=== PATIENT | female | born 1995 | race Caucasian/White ===

== ENCOUNTER 2019-05-31 12:21 | Emergency (ER) | payer OTHER ==
[~2019-05-31] VITALS: Ht 175.3 cm; Wt 67.1 kg
--- NOTE | 2019-05-31 13:32 | RAD ---
EXAM: Left elbow, 3 views; left shoulder, 3 views; left hand, 3 views. HISTORY: Fall. COMPARISON: None. FINDINGS: Left elbow: 3 views of the left elbow are obtained. There is a mildly displaced radial head and neck fracture with associated elbow effusion. Left hand: 3 views of the left hand are obtained. There is no fracture, dislocation or subluxation. Left shoulder: 3 views of the left shoulder obtained. There is no fracture, dislocation or subluxation. IMPRESSION: Mildly displaced left radial head and neck fracture with associated elbow effusion. Electronically signed by: Sonja Good MD (05/31/2019 1:29 PM) [facility]
[2019-05-31 13:55] VITALS: BP 128/80
--- NOTE | 2019-05-31 14:05 | PHYS DOC ---
Past History Past Medical History: No Pertinent History Past Surgical History: Other Additional Past Surgical Histo: Left overay Smoking: Non-smoker Alcohol Use: None Drug Use: None Adult General Chief Complaint Chief Complaint: MECHANICAL FALL HPI HPI Patient is a 24-year-old female presents with left, nondominant elbow and forearm discomfort. Patient slipped on water falling backwards landing on her elbow. No numbness or tingling. Decreased active range of motion at the elbow. Some relief with ibuprofen. Pain is moderate.[] Review of Systems Review of Systems Constitutional: Denies fever or chills [] Eyes: Denies change in visual acuity, redness, or eye pain [] HENT: Denies nasal congestion or sore throat [] Respiratory: Denies cough or shortness of breath [] Cardiovascular: No chest pain or palpitations[] GI: Denies abdominal pain, nausea, vomiting, bloody stools or diarrhea [] : Denies dysuria or hematuria [] Musculoskeletal: Denies back pain, see history of present illness[] Integument: Denies rash or skin lesions [] Neurologic: Denies headache, focal weakness or sensory changes [] Endocrine: Denies polyuria or polydipsia [] All other systems were reviewed and found to be within normal limits, except as documented in this note. Allergies Allergies Allergies Coded Allergies Type Severity Reaction Last Updated Verified No Known Drug Allergies 05/31/19 No Physical Exam Physical Exam Constitutional: Well developed, well nourished, no acute distress, non-toxic appearance. [] HENT: Normocephalic, atraumatic, bilateral external ears normal, oropharynx moist, no oral exudates, nose normal. [] Eyes: PERRLA, EOMI, conjunctiva normal, no discharge. [] Neck: Normal range of motion, no tenderness, supple, no stridor. [] Cardiovascular:Heart rate regular rhythm, no murmur [] Lungs & Thorax: Bilateral breath sounds clear to auscultation [] Abdomen: Not examined. [] Skin: Warm, dry, no erythema, no rash. [] Back: No tenderness, no CVA tenderness. [] Extremities: Left elbow has tenderness to palpation diffusely. Active range of motion from approximately 45 to 135, unable to fully extend. No wrist tenderne ss. No shoulder tenderness. A joint above and a joined below were evaluated and were normal. She is distally neurovascularly intact. The other 3 extremities show: No tenderness, no cyanosis, no clubbing, ROM intact, no edema. [] Neurologic: Alert and oriented X 3, normal motor function, normal sensory function, no focal deficits noted. [] Psychologic: Affect normal, judgement normal, mood normal. [] Current Patient Data Vital Signs Vital Signs Date Time Temp Pulse Resp B/P (MAP) Pulse Ox O2 Delivery O2 Flow Rate FiO2 05/31/19 13:55 98.0 80 16 100 Room Air 05/31/19 12:56 124/78 (93) EKG EKG [] Radiology/Procedures Radiology/Procedures PROCEDURE: ELBOW LEFT 3V EXAM: Left elbow, 3 views; left shoulder, 3 views; left hand, 3 views. HISTORY: Fall. COMPARISON: None. FINDINGS: Left elbow: 3 views of the left elbow are obtained. There is a mildly displaced radial head and neck fracture with associated elbow effusion. Left hand: 3 views of the left hand are obtained. There is no fracture, dislocation or subluxation. Left shoulder: 3 views of the left shoulder obtained. There is no fracture, dislocation or subluxation. IMPRESSION: Mildly displaced left radial head and neck fracture with associated elbow effusion.[] Course & Med Decision Making Course & Med Decision Making Pertinent Labs and Imaging studies reviewed. (See chart for details) ED course: Patient arrived, was placed in bed, and tolerated exam well. She was transported to and from radiology with any complications. After return of the imaging findings, these were discussed with the patient. Consultation was made with orthopedic surgery, Dr. Chavez, who recommended a sling. She is to follow- up with him in 2 weeks. She was distally neurovascularly intact after sling application. She was discharged in improved condition with all questions answered. Medical decision making: Patient with a closed fracture of her left radial head with the effusion triggering decreased or range of motion. There is no evidence of neurologic or vascular compromise. No evidence of nonaccidental trauma. No evidence of an open fracture.[] Dragon Disclaimer Dragon Disclaimer This electronic medical record was generated, in whole or in part, using a voice recognition dictation system. Departure Departure: Impression: Primary Impression: Fracture of radial head, left, closed Disposition: 01 HOME, SELF-CARE Condition: IMPROVED Referrals: PCP,NO (PCP) Patient Instructions: Radial Head Fracture, Sling Use After Injury or Surgery Additional Instructions: Follow-up with your regular doctor in 2 days. If you do not have regular doctor list of local clinics will be provided for you. Follow-up with Dr. Chavez, orthopedic surgery, in 2 weeks. Contact the office to arrange appointment time. [address] [facility], [place] [address] Return to the ER if worsening pain, weakness, or any other concerns. Scripts Hydrocodone Bit/Acetaminophen (NORCO 5-325 TABLET) 1 Each Tablet 1 TAB PO Q4-6HRS for severe pain, #20 TAB Prov: ISAÍAS BOATENG DO 05/31/19 Meloxicam (MELOXICAM) 7.5 Mg Tablet 7.5 MG PO DAILY for PAIN, #20 TAB Prov: ISAÍAS BOATENG DO 05/31/19 Problem Qualifiers Primary Impression: Fracture of radial head, left, closed Encounter type: initial encounter Fracture alignment: displaced Qualified Codes: S52.122A - Displaced fracture of head of left radius, initial encounter for closed fracture ISAÍAS BOATENG DO May 31, 2019 14:05
[2019-05-31] MEDS ORDERED: MELO7.5T29 PO (14:38)
[2019-05-31] MEDS ORDERED: HYDR-3165 PO (14:38)
--- NOTE | 2019-05-31 14:52 | RAD ---
EXAM: Left elbow, 3 views; left shoulder, 3 views; left hand, 3 views. HISTORY: Fall. COMPARISON: None. FINDINGS: Left elbow: 3 views of the left elbow are obtained. There is a mildly displaced radial head and neck fracture with associated elbow effusion. Left hand: 3 views of the left hand are obtained. There is no fracture, dislocation or subluxation. Left shoulder: 3 views of the left shoulder obtained. There is no fracture, dislocation or subluxation. IMPRESSION: Mildly displaced left radial head and neck fracture with associated elbow effusion. MTDD
== END 2019-05-31 14:54 | disposition home or self-care (01) ==
LOC: ER 12:21
DX: S52.122A Displaced fracture of head of left radius, initial encounter for closed fracture (principal); W01.0XXA Fall on same level from slipping, tripping and stumbling without subsequent striking against object, initial encounter; Y93.89 Activity, other specified; Y92.89 Other specified places as the place of occurrence of the external cause; Y99.8 Other external cause status
CPT/HCPCS: 73030; 73080; 73130; 99284

== ENCOUNTER 2019-08-30 19:39 | Emergency (ER) | payer OTHER ==
[~2019-08-30] VITALS: Ht 177.8 cm; Wt 79.4 kg
[~2019-08-30 19:39] MED LIST: HYDR-3165 PO; MELO7.5T29 PO
[2019-08-30 19:50] VITALS: BP 127/69
[2019-08-30 20:30] LABS: INFLUENZA A PATIENT NEGATIVE (NEGATIVE); INFLUENZA B PATIENT NEGATIVE (NEGATIVE)
[2019-08-30] MEDS ORDERED: AZIT250T PO (20:41)
--- NOTE | 2019-08-30 20:42 | PHYS DOC ---
Past History Past Medical History: No Pertinent History Past Surgical History: Other Additional Past Surgical Histo: OVARIAN CYST, CLEFT PALATE Smoking: Non-smoker Alcohol Use: None Drug Use: None Adult General Chief Complaint Chief Complaint: COUGH [facility] HPI 24-year-old female presents with a chief complaint of cough with sputum production and sore throat. Patient states symptoms been ongoing for the last several days progressively becoming worse. Patient denies any associated fevers. Review of Systems Review of Systems Constitutional: Denies fever or chills [] Eyes: Denies change in visual acuity, redness, or eye pain [] HENT: Positive sore throat Respiratory: Positive cough Cardiovascular: No additional information not addressed in HPI [] GI: Denies abdominal pain, nausea, vomiting, bloody stools or diarrhea [] : Denies dysuria or hematuria [] Musculoskeletal: Denies back pain or joint pain [] Integument: Denies rash or skin lesions [] Neurologic: Denies headache, focal weakness or sensory changes [] Endocrine: Denies polyuria or polydipsia [] All other systems were reviewed and found to be within normal limits, except as documented in this note. Allergies Allergies Allergies Coded Allergies Type Severity Reaction Last Updated Verified No Known Drug Allergies 05/31/19 No Physical Exam Physical Exam Constitutional: Well developed, well nourished, no acute distress, non-toxic appearance. [] HENT: Normocephalic, atraumatic, bilateral external ears normal, oropharynx moist, no oral exudates, nose normal. [] Eyes: PERRLA, EOMI, conjunctiva normal, no discharge. [] Neck: Normal range of motion, no tenderness, supple, no stridor. [] Cardiovascular:Heart rate regular rhythm, no murmur [] Lungs & Thorax: Bilateral breath sounds clear to auscultation [] Abdomen: Bowel sounds normal, soft, no tenderness, no masses, no pulsatile masses. [] Skin: Warm, dry, no erythema, no rash. [] Back: No tenderness, no CVA tenderness. [] Extremities: No tenderness, no cyanosis, no clubbing, ROM intact, no edema. [] Neurologic: Alert and oriented X 3, normal motor function, normal sensory function, no focal deficits noted. [] Psychologic: Affect normal, judgement normal, mood normal. [] Current Patient Data Vital Signs Vital Signs Date Time Temp Pulse Resp B/P (MAP) Pulse Ox O2 Delivery O2 Flow Rate FiO2 08/30/19 19:50 98.2 72 20 127/69 (88) 98 Room Air Lab Results Laboratory Tests Test 08/30/19 19:55 Influenza Type A (Rapid) Negative (NEGATIVE) Influenza Type B (Rapid) Negative (NEGATIVE) EKG EKG [] Radiology/Procedures Radiology/Procedures [] Course & Med Decision Making Course & Med Decision Making Pertinent Labs and Imaging studies reviewed. (See chart for details) []Flu swab negative. Patient was discharged home with Zithromax. Patient advised to take [id number] cough medications. Dragon Disclaimer Dragon Disclaimer This electronic medical record was generated, in whole or in part, using a voice recognition dictation system. Departure Departure: Impression: Primary Impression: Bronchitis Disposition: 01 HOME, SELF-CARE Condition: STABLE Referrals: PCP,NO (PCP) Patient Instructions: Acute Bronchitis Scripts Azithromycin (ZITHROMAX) 250 Mg Tablet 250 MG PO DAILY for ANTI-BIOTIC for 5 Days, #6 TAB 0 Refills Prov: ROCKY IBANEZ DO 08/30/19 ROCKY IBANEZ DO Aug 30, 2019 20:42
== END 2019-08-30 20:53 | disposition home or self-care (01) ==
LOC: ER 19:39
DX: J40 Bronchitis, not specified as acute or chronic (principal)
CPT/HCPCS: 87804; 99283

== ENCOUNTER 2019-09-26 18:35 | Emergency (ER) | payer OTHER ==
[~2019-09-26] VITALS: Ht 177.8 cm; Wt 79.1 kg
[~2019-09-26 18:35] MED LIST changes: +AZIT250T PO
--- NOTE | 2019-09-26 19:55 | PHYS DOC ---
Past History Past Medical History: No Pertinent History Past Surgical History: Other Additional Past Surgical Histo: cleft p[alate repair, ovarian cyst removed Smoking: Non-smoker Alcohol Use: None Drug Use: None General Adult EDM: Chief Complaint: NAUSEA/VOMITING/DIARRHEA HPI: HPI: 24-year-old female presents with vomiting for a few days. She is having difficulty keeping anything but fluids and crackers down. She has also had intermittent epigastric pain with vomiting. The pain is a cramping sensation that comes and goes. She has not had a fever or chills. She has had some chest discomfort with her cough, but it only hurts when she coughs hard. No known coronavirus exposures. She does not feel short of breath. She denies abdominal surgery. Review of Systems: Review of Systems: Constitutional: Denies fever or chills Eyes: Denies change in visual acuity HENT: Denies nasal congestion or sore throat Respiratory: Cough without shortness of breath Cardiovascular: Denies chest pain or edema GI: Epigastric abdominal pain, nausea, vomiting : Denies dysuria Musculoskeletal: Denies back pain or joint pain Integument: Denies rash Neurologic: Denies headache, focal weakness or sensory changes Endocrine: Denies polyuria or polydipsia Lymphatic: Denies swollen glands Psychiatric: Denies depression or anxiety Heart Score: Risk Factors: Risk Factors: DM, Current or recent (<one month) smoker, HTN, HLP, family history of CAD, obesity. Risk Scores: Score 0 - 3: 2.5% MACE over next 6 weeks - Discharge Home Score 4 - 6: 20.3% MACE over next 6 weeks - Admit for Clinical Observation Score 7 - 10: 72.7% MACE over next 6 weeks - Early Invasive Strategies Current Medications: Current Meds: Current Medications Medications (Trade) Dose Ordered Sig/Dhara Start Time Stop Time Status Last Admin Dose Admin Ondansetron HCl (Zofran) 4 mg 1X ONCE 09/26/19 19:00 09/26/19 19:01 DC Sodium Chloride 1,000 ml @ 1,000 mls/hr 1X ONCE 09/26/19 19:00 09/26/19 19:59 Allergies: Allergies: Allergies Coded Allergies Type Severity Reaction Last Updated Verified No Known Drug Allergies 09/26/19 No Physical Exam: PE: Constitutional: Well developed, well nourished, no acute distress, non-toxic appearance. [] HENT: Normocephalic, atraumatic, bilateral external ears normal, oropharynx moist, no oral exudates, nose normal. [] Eyes: PERRLA, EOMI, conjunctiva normal, no discharge. [] Neck: Normal range of motion, no tenderness, supple, no stridor. [] Cardiovascular: Heart rate regular rhythm, no murmur [] Lungs & Thorax: Bilateral breath sounds clear to auscultation [] Abdomen: Bowel sounds normal, soft, no tenderness, no masses, no pulsatile masses. [] Skin: Warm, dry, no erythema, no rash. [] Back: No tenderness, no CVA tenderness. [] Extremities: No tenderness, no cyanosis, no clubbing, ROM intact, no edema. [] Neurologic: Alert and oriented X 3, normal motor function, normal sensory function, no focal deficits noted. [] Psychologic: Affect normal, judgement normal, mood normal. [] Current Patient Data: Vital Signs: Vital Signs Date Time Temp Pulse Resp B/P (MAP) Pulse Ox O2 Delivery O2 Flow Rate FiO2 09/26/19 18:48 99.4 72 18 129/78 (95) 97 Room Air EKG: EKG: [] Radiology/Procedures: Radiology/Procedures: [] Impressions: Exam: Chest one view INDICATION: Cough TECHNIQUE: Frontal view of the chest Comparisons: None FINDINGS: The cardiomediastinal silhouette and pulmonary vessels are within normal limits. The lung and pleural spaces are clear. IMPRESSION: No acute cardiopulmonary process. Electronically signed by: Jenny Moulton MD (09/26/2019 8:24 PM) [id number] DICTATED AND SIGNED BY: JENNY MOULTON MD DATE: 09/26/192023 CC: SONIA CORLEY DO; ISABELLE VILLARREAL MD ~ Course & Med Decision Making: Course & Med Decision Making Pertinent Labs and Imaging studies reviewed. (See chart for details) The patient's chest x-ray is unremarkable. The patient's labs are unremarkable. Her urinalysis is negative for infection. She was given a liter of saline and Zofran by IV. She's had no further vomiting. I will discharge her with prescription for Zofran. She is stable for discharge at this time. [] Dragon Disclaimer: Dragon Disclaimer: This electronic medical record was generated, in whole or in part, using a voice recognition dictation system. Departure Departure: Impression: Primary Impression: Nausea and vomiting Qualified Codes: R11.2 - Nausea with vomiting, unspecified Disposition: 01 HOME, SELF-CARE Condition: STABLE Referrals: ISABELLE VILLARREAL MD (PCP) Patient Instructions: Nausea and Vomiting, Dpel-cu-Gudc Scripts Ondansetron (ONDANSETRON ODT) 4 Mg Tab.rapdis 1 TAB PO PRN Q6-8HRS PRN for VOMITING, #16 TAB Prov: SONIA CORLEY DO 09/26/19 SONIA CORLEY DO Sep 26, 2019 19:55
[2019-09-26] MEDS: ONDANSETRON PF 4 MG/2 ML VIAL. IVP ONE (20:20)
[2019-09-26] MEDS: IV NORMAL SALINE 1,000ML 1,000 ML IV ONE (20:20)
[2019-09-26 20:24] VITALS: BP 124/80
--- NOTE | 2019-09-26 20:27 | RAD ---
Exam: Chest one view INDICATION: Cough TECHNIQUE: Frontal view of the chest Comparisons: None FINDINGS: The cardiomediastinal silhouette and pulmonary vessels are within normal limits. The lung and pleural spaces are clear. IMPRESSION: No acute cardiopulmonary process. Electronically signed by: Jenny Donaldson MD (09/26/2019 8:24 PM) [id number]
[2019-09-26 21:05] LABS: BASO # 0.1 x10^3/uL (0.0-0.2); BASO % 1 % (0-3); EOS # 0.2 x10^3/uL (0.0-0.7); EOS % 3 % (0-3); HEMATOCRIT 42.2 % (36.0-47.0); HEMOGLOBIN 12.6 g/dL (12.0-15.5); LYMPH # 1.7 x10^3/uL (1.0-4.8); LYMPH % 27 % (24-48); MEAN CORPUSCULAR HEMOGLOBIN 32 pg (25-35); MONO # 0.3 x10^3/uL (0.0-1.1); MONO % 5 % (0-9); NEUT % 64 % (31-73); PLATELET COUNT 163 x10^3/uL (140-400); RED CELL DISTRIBUTION WIDTH 14.7 % (11.5-14.5); WHITE BLOOD COUNT 6.2 x10^3/uL (4.0-11.0)
[2019-09-26 21:17] LABS: MEAN CORPUSCULAR HGB CONC 30 g/dL (31-37); MEAN CORPUSCULAR VOLUME 106 fL (79-100)
[2019-09-26 21:20] LABS: CALCIUM 8.7 mg/dL (8.5-10.1); CREATININE 0.9 mg/dL (0.6-1.0); GFR 76.9; POTASSIUM 4.2 mmol/L (3.5-5.1)
[2019-09-26 21:26] LABS: ALBUMIN 3.6 g/dL (3.4-5.0); ALBUMIN/GLOBULIN RATIO 1.4 (1.0-1.7); TOTAL BILIRUBIN 0.3 mg/dL (0.2-1.0); TOTAL PROTEIN 6.1 g/dL (6.4-8.2)
[2019-09-26 21:47] LABS: BILIRUBIN,URINE NEG (NEG); CLARITY,URINE CLEAR; COLOR,URINE YELLOW; GLUCOSE,URINE NEG (NEG); NITRITE,URINE NEG (NEG); RBC,URINE OCC /HPF (0-2); UROBILINOGEN,URINE 0.2 mg/dL (0.2 mg/dL); WBC,URINE OCC /HPF (0-4)
[2019-09-26 21:48] LABS: BACTERIA,URINE FEW /HPF (0-FEW); SQUAMOUS EPITHELIAL CELL,UR OCC /LPF
[2019-09-26] MEDS ORDERED: ONDA4TAB12 PO (22:03)
[2019-09-26 22:20] LABS: U PREG PATIENT NEGATIVE (NEG)
== END 2019-09-26 22:33 | disposition home or self-care (01) ==
LOC: ER 18:35
DX: R11.2 Nausea with vomiting, unspecified (principal); R10.13 Epigastric pain; R07.89 Other chest pain
CPT/HCPCS: 36415; 71045; 80053; 81001; 81025; 85025; 96361; 96374; 99284; J2405; J7030